=== PATIENT | male | born 1965 | race African-American/Black ===

== ENCOUNTER 2019-12-11 06:22 | Inpatient (IN) | payer MEDICARE, MEDICAID, SELFPAY ==
[2019-12-11] VITALS (49 sets, daily range): BP systolic 117–157; BP diastolic 82–115; PULSE 95–124; RESP 12–28; TEMP 35.9–36.6; O2SAT 91–100; BMI 24.7
--- NOTE | ~2019-12-11 | XR_ITS ---
EXAMINATION: XR chest 1V portable INDICATION: Left-sided chest pain TECHNIQUE: Portable AP chest at 0659 hours COMPARISON: None available FINDINGS: Cardiomegaly is noted. Mild diffuse interstitial and airspace opacities are present. There is no pleural effusion or pneumothorax. Old right-sided rib fractures are noted. There are partially imaged changes of the cervicothoracic spine. IMPRESSION: 1. Mild diffuse interstitial and airspace opacities which could reflect pulmonary edema and/or pneumo cher/or atelectasis. 2. Cardiomegaly. Reviewed, dictated and finalized at location A. DRAWER IMPRESSION: 1. Mild diffuse interstitial and airspace opacities which could reflect pulmona ry edema and/or pneumonia/or atelectasis. 2. Cardiomegaly.
--- NOTE | ~2019-12-11 | XR_ITS ---
EXAMINATION: XR chest 1V portable INDICATION: Pneumonia and congestive heart failure TECHNIQUE: Portable AP chest at 0905 hours COMPARISON: 12/11/2019 FINDINGS: There is stable cardiomegaly. A mild diffuse interstitial pattern persists but has improved . There is no pleural effusion or pneumothorax. Healed right-sided rib fractures are noted. There are partially imaged surgical changes in the cervicothoracic spine. IMPRESSION: 1. Cardiomegaly with improving pulmonary edema. Reviewed, dictated and finalized at location A. CARE MANAGEMENT
--- NOTE | ~2019-12-11 | CT_ITS ---
EXAMINATION: CTA chest PE protocol DATE: 12/11/2019 07:26 INDICATION: Chest pain TECHNIQUE: Computed tomography angiography (CTA) of the chest was performed with 100 mL Omnipaque-350 intravenous contrast timed to evaluate the pulmonary arteries. Coronal maximum intensity projection 3D-reconstructions were created by the technologist. The dose-length product (DLP) was 403.81 mGy-cm. Automated exposure control and iterative reconstruction technique were employed. COMPARISON: None. FINDINGS: The pulmonary arteries are well-opacified. No pulmonary embolism is identified. There is mi ld emphysema. Cardiomegaly is noted. There is smooth interlobular septal thickening in the lower lung zones. Mild dependent atelectasis is noted. There are mildly enlarged bilateral hilar lymph nodes. T race pleural effusions are present. There is no pneumothorax. There are partially imaged surgical chris nges at the cervicothoracic junction. Mild thoracic spondylosis is noted. There are healed right-side d rib fractures. IMPRESSION: 1. No pulmonary embolism. 2. Cardiomegaly with mild pulmonary edema. Reviewed, dictated and finalized at location A. UP AND CHARGER
--- NOTE | 2019-12-11 06:30 | ECG_ITS ---
Measurements Intervals [place] Rate: 108 P: 52 RI: 141 QRS: -54 QRSD: 98 T: 106 QT: 351 QTc: 472 Interpretive Statements SINUS TACHYCARDIA ATRIAL AND VENTRICULAR PREMATURE COMPLEXES POSSIBLE LEFT ATRIAL ENLARGEMENT LEFT AXIS DEVIATION CANNOT RULE OUT SEPTAL INFARCT, AGE INDETERMINATE ST-T WAVE ABNORMALITY IN LATERAL LEADS- CONSIDER ISCHEMIA ABNORMAL ECG Electronically Signed On 12-11-2019 7:56:05 MARKETING BUDGET ANALYST by Marco Dubose D.O.
[2019-12-11 06:44] LABS: Basophils Absolute Auto 0.1 K/mm3 (0.0-0.1); Basophils Percent Auto 0.7 % (0.2-1.2); Eosinophils Absolute Auto 0.3 K/mm3 (0-0.3); Eosinophils Percent Auto 2.1 % (0-4.4); Hematocrit 43.3 % (42.0-52.0); Hemoglobin 14.2 g/dL (14.0-18.0); Immature Granulocyte Percent A 1.6 % (0-0.5); Mean Corpuscular HGB Conc 32.8 g/dl (32-36); Mean Corpuscular Hemoglobin 31.4 pg (26-34); Mean Corpuscular Volume 95.8 fl (80-100); Mean Platelet Volume 11.1 fl (7.4-10.4); Monocytes Absolute Auto 1.3 K/mm3 (0.1-0.6); Monocytes Percent Auto 10.3 % (2.6-8.5); Neutrophils Absolute Auto 8.2 K/mm3 (1.3-6.7); Neutrophils Percent Auto 67.3 % (45.5-73.1); Platelet Count Result 183 k/mm3 (150-375); Red Blood Count 4.52 M/mm3 (4.6-6.20); Red Cell Distribution Width 14.2 % (11.5-14.5); White Blood Count 12.2 K/mm3 (4.5-10.0)
[2019-12-11 06:55] LABS: INR 1.1; Prothrombin Time 14.3 Seconds (11.1-14.7)
[2019-12-11 06:56] LABS: Partial Thromboplastin Time 27.2 SECONDS (22.3-36.8)
[2019-12-11 06:59] LABS: Alanine Aminotransferase 63 U/L (4-50); Albumin Level 4.1 g/dL (3.5-5.1); Alkaline Phosphatase 63 U/L (38-126); Anion Gap 10 mmol/L (8-16); Aspartate Amino Transferase 50 U/L (17-59); Bilirubin,Total 0.8 mg/dL (0.2-1.3); Blood Urea Nitrogen 21 mg/dL (9-20); Calcium 9.2 mg/dL (8.4-10.2); Carbon Dioxide 29 mmol/L (22-30); Chloride 103 mmol/L (98-107); Estimated CRCL calculation 83 ml/min; Estimated Glomerular Filt Rate > 60; Glucose 120 mg/dL (75-110); Potassium 3.5 mmol/L (3.4-5.0); Sodium 142 mmol/L (137-145)
--- NOTE | 2019-12-11 07:09 | ED.CHESTPAIN ---
HPI - Chest Pain General Chief Complaint: Chest Pain Stated Complaint: CP Time Seen by Provider: 12/11/19 07:00 Source: RN notes reviewed History of Present Illness HPI narrative: Patient presents emergency department from home for left-sided chest pain. Patient states pain began last night. States the pain has been constant and does not radiate. The pain is located over the left chest and described sharp and stabbing. Associate with mild shortness of breath. He denies any fevers or chills cough abdominal pain nausea vomiting or any other symptoms denies any previous cardiac history Related Data Allergies Allergy/AdvReac Type Severity Reaction Status Date / Time aspirin Allergy Unknown Verified 05/27/13 11:00 Review of Systems Review of Systems: Narrative: Gen.: Denies fevers or chills ENT: Denies congestion Respiratory: Denies shortness of breath or cough CV: See HPI GI: Denies abdominal pain nausea, emesis or diarrhea Musculoskeletal: Denies back pain or muscle pain Neuro: Denies numbness, tingling, weakness or focal weakness Skin: Denies rash Except as documented, all other systems reviewed and negative [facility] Past Medical History Medical History (Updated 12/11/19 @ 09:42 by Hal Espinoza DO) Sarcoidosis Social History Social History (Updated 12/11/19 @ 07:10 by Hal Espinoza DO) Smoking status: Current every day smoker Alcohol intake: never Exam Narrative: Exam Narrative: APPEARANCE: No acute distress, nontoxic, resting in bed EYES: EOMI HEENT: Normocephalic, atraumatic, OMM RESPIRATORY: No respiratory distress Clear to auscultation bilaterally with no rhonchi wheezing or rales. CARDIOVASCULAR: Regular rate and rhythm without murmurs rubs or gallops. Chest: Tender palpation over the left anterior lateral chest wall and regions of ribs 6 through 8 and overlying swelling or ecchymosis pain increased with movement of the torso ABDOMINAL: Soft, nontender, nondistended, no rebound or guarding MUSCULOSKELETAl: Moves all extremities. No clubbing, cyanosis or edema. NEURO: Awake and alert. Following commands, speech normal, no focal deficits SKIN:: Warm, dry. No rashes lesions or abrasions PSYCHIATRIC: Normal affect/mood, Course Course Emergency Course: Patient states he is allergic to aspirin and gets hives when he takes aspirin Called and discussed with INVESTMENT FUND MANAGER and Raulito for Dr. Warner presentation work-up. Will discuss with Dr. Timmy Warner came to emergency department to evaluate the patient. After evaluation he does plan to take the patient to the Foot [facility]ist at this time. He recommends no further anticoagulation be given at this time. Request patient admitted to hospitalist service Discussed with Dr Nolan presentation work-up. Agrees with admission at this time Discussed with patient and family results of workup and diagnosis. Discussed need for admission. Patient and family understand and agree to current treatment plan Vital Signs Vital signs: Vital Signs Temperature 97.9 F 12/11/19 06:20 Pulse Rate 113 H 12/11/19 06:20 Respiratory Rate 20 12/11/19 06:20 Blood Pressure 131/103 H 12/11/19 06:20 Pulse Oximetry 94 12/11/19 06:20 Temperature 97.9 F 12/11/19 06:20 Pulse Rate 108 H 12/11/19 09:16 Respiratory Rate 20 12/11/19 09:16 Blood Pressure 135/103 H 12/11/19 09:16 Pulse Oximetry 96 12/11/19 09:16 MDM - Chest Pain Lab Data Result diagrams: 12/11/19 06:36 12/11/19 06:36 Labs: Lab Results 12/11/19 12/11/19 12/11/19 Range/Units 06:36 06:36 06:36 WBC 12.2 H (4.5-10.0) K/mm3 RBC 4.52 L (4.6-6.20) M/mm3 Hgb 14.2 (14.0-18.0) g/dL Hct 43.3 (42.0-52.0) % MCV 95.8 (80-100) fl MCH 31.4 (26-34) pg MCHC 32.8 (32-36) g/dl RDW 14.2 (11.5-14.5) % Plt Count 183 (150-375) k/mm3 MPV 11.1 H (7.4-10.4) fl Immature Gran % (Auto) 1.6 H (0-0.5) % Neut % (Auto) 67
[2019-12-11 07:10] LABS: Troponin I 0.146 ng/mL (0.000-0.034)
[2019-12-11 07:29] LABS: NT Pro B Type Natriuretic Pept 7060 PG/ML (5-100)
[2019-12-11] MEDS: MORPHINE SULFATE (*CRX) 2 MG/ML INJ IV PUSH (08:02)
[2019-12-11] MEDS: NITROGLYCERIN OINTMENT 1 INCH DOSE TRANSDERM (08:24)
--- NOTE | 2019-12-11 09:38 | PM.CNCAR ---
Assessment and Plan Additional Plan this is a 54-year-old black male with intermittent episodes of chest pain for 2 or 3 weeks. By his description in the quality of this pain it sounds most commonly like chest wall pain. Having said that he does have some E T-wave abnormalities electrocardiographically and a modestly elevated troponin. We will bring the patient this morning for coronary angiography to define his coronary anatomy. Hopefully he will not have disease requiring PCI since he reports an aspirin allergy. Vipul Warner MD [facility] History of Present Illness History of Present Illness Consult date/time: 12/11/19 09:38 Consult reason: chest pain Reason For Visit: nstemi Narrative: This is a 54-year-old gentleman that I am seeing in the emergency room this morning because of chest pain. He is unknown to me prior to this encounter. This is a man who says he has been having episodes of chest pain for approximately 2-3 weeks. The pain he says is a pressure-like central substernal to sometimes left precordial pain that is sometimes mild sometimes more severe. When he has it he states that respiratory effort makes the pain much worse. It is also worse when he lays down supine and stents to improve when he sits up in the forward position. This morning he had an episode of this pain that was particularly severe he became concerned and had his call an ambulance he was brought to the emergency room for evaluation. In the ambulance on route he received some nitroglycerin which provided some modest improvement in his symptoms. He received some morphine in the emergency department for further treatment of this pain. He has not received aspirin since he reports an aspirin allergy. His electrocardiogram in the emergency room shows sinus tachycardia with left ventricular hypertrophy and secondary repolarization abnormalities. His troponin level was elevated at 0.1. In this setting I am seeing him in consultation in the emergency department. His chest x-ray demonstrates enlargement of the cardiac silhouette and some pulmonary vascular congestion. Oxygenation is normal in the emergency department. His past medical history is remarkable primarily for hypertension and sarcoidosis. Review of Systems Constitutional: Constitutional: Reports no additional constitutional complaints Eyes: Eyes: Reports no additional eye complaints ENT: Reports system reviewed and no additional complaints, except as documented Cardiovascular: Cardiovascular: Reports as per HPI Respiratory: Respiratory: Reports as per HPI Gastrointestinal: Gastrointestinal: Reports no additional gastrointestinal complaints Musculoskeletal: Musculoskeletal: Reports no additional musculoskeletal complaints Integumentary/Breasts: Skin/Breast: Reports system reviewed and no additional complaints, except as docu Neurologic: Reports system reviewed and no additional complaints, except as documented Endocrine: Endocrine: Reports no additional endocrine complaints [facility] Past Medical History Medical History (Updated 12/11/19 @ 09:42 by Hal Espinoza DO) Sarcoidosis Social History Social History (Updated 12/11/19 @ 07:10 by Hal Espinoza DO) Smoking status: Current every day smoker Alcohol intake: never Meds Home Medications and Allergies Allergies Allergy/AdvReac Type Severity Reaction Status Date / Time aspirin Allergy Unknown Verified 05/27/13 11:00 Vital Signs Vital Signs - 24 hr 12/11/19 06:20 12/11/19 06:46 12/11/19 06:52 Temperature 36.6 C Pulse Rate 113 H 107 H Respiratory Rate 20 20 Blood Pressure 131/103 H 138/99 H Pulse Oximetry 94 94 12/11/19 07:00 12/11/19 07:01 12/11/19 07:15 Temperature Pulse Rate 112 H 107 H 108 H Respiratory Rate 14 14 16 Blood Pressure 139/101 H 136/97 H Pulse Oximetry 95 94 94 12/11/19 07:16 12/11/19 07:30 12/11/19 07:41 Temperature Pulse Rate 106 H 113 H 107 H
--- NOTE | 2019-12-11 09:49 | WPDMODSED ---
Moderate Sedation Note-Pt Data Patient Data Diagnosis: chest pain, ECG abnormalities, elevated troponin Present Complaint: this is a 54-year-old patient with a history of hypertension and sarcoidosis presenting with 2-3 weeks of intermittent chest pain primarily with quality that sounds like chest wall pain. He does have T-wave abnormalities and elevated troponin prompting the recommendation to perform an angiogram Procedure to be performed/Plan: left heart catheterization Allergies Allergy/AdvReac Type Severity Reaction Status Date / Time aspirin Allergy Unknown Verified 05/27/13 11:00 Sedation/Anesthesia: No previous sedation/anesthesia problems (including family history). [facility] Past Medical History Medical History (Updated 12/11/19 @ 09:42 by Hal Espinoza DO) Sarcoidosis Social History Social History (Updated 12/11/19 @ 07:10 by Hal Espinoza DO) Smoking status: Current every day smoker Alcohol intake: never Mod Sed Physical Exam Physical Exam Pre Procedural Exam: Normal: Neck, Throat, Airway, Lungs, Heart Size, Heart Rate, Heart Rhythm, Neuro Exam and Extremities and Variation: Appearance ( well-developed well-nourished black male mild distress with chest pain) Hours since solid foods: 12 Hours since liquid intake: 12 Internal Medicine - PN: Obj Da Vital Signs Vital Signs: Vital Signs - 24 hr 12/11/19 06:20 12/11/19 06:46 12/11/19 06:52 Temperature 36.6 C Pulse Rate 113 H 107 H Respiratory Rate 20 20 Blood Pressure 131/103 H 138/99 H Pulse Oximetry 94 94 12/11/19 07:00 12/11/19 07:01 12/11/19 07:15 Temperature Pulse Rate 112 H 107 H 108 H Respiratory Rate 14 14 16 Blood Pressure 139/101 H 136/97 H Pulse Oximetry 95 94 94 12/11/19 07:16 12/11/19 07:30 12/11/19 07:41 Temperature Pulse Rate 106 H 113 H 107 H Respiratory Rate 16 20 15 Blood Pressure 135/97 H Pulse Oximetry 95 96 94 12/11/19 07:45 12/11/19 07:46 12/11/19 08:00 Temperature Pulse Rate 113 H 106 H 111 H Respiratory Rate 12 12 17 Blood Pressure 135/100 H 145/115 H Pulse Oximetry 95 94 98 12/11/19 08:01 12/11/19 08:04 12/11/19 08:15 Temperature Pulse Rate 110 H 110 H 109 H Respiratory Rate 20 12 Blood Pressure 142/101 H Pulse Oximetry 97 91 12/11/19 08:16 12/11/19 08:30 12/11/19 08:31 Temperature Pulse Rate 107 H 109 H 108 H Respiratory Rate 14 20 20 Blood Pressure 139/102 H Pulse Oximetry 93 93 96 12/11/19 08:45 12/11/19 08:46 12/11/19 09:00 Temperature Pulse Rate 117 H 124 H 106 H Respiratory Rate 16 19 20 Blood Pressure 138/104 H 139/104 H Pulse Oximetry 94 95 92 12/11/19 09:01 12/11/19 09:15 12/11/19 09:16 Temperature Pulse Rate 107 H 108 H 108 H Respiratory Rate 20 20 20 Blood Pressure 135/103 H Pulse Oximetry 94 92 96 12/11/19 09:17 12/11/19 09:30 12/11/19 09:31 Temperature Pulse Rate 107 H 106 H 107 H Respiratory Rate 22 H 23 H 17 Blood Pressure 139/103 H Pulse Oximetry 94 92 95 Meds/Results Radiology Results: ITS Impressions Chest X-Ray 12/11/19 06:58 IMPRESSION: 1. Mild diffuse interstitial and airspace opacities which could reflect pulmonary edema and/or pneumonia/or atelectasis. 2. Cardiomegaly. Chest CTA 12/11/19 07:33 IMPRESSION: 1. No pulmonary embolism. 2. Cardiomegaly with mild pulmonary edema. Labs CBC & Chem 7: 12/11/19 06:36 12/11/19 06:36 Labs: Laboratory Results - last 24 hr 12/11/19 12/11/19 12/11/19 06:36 06:36 06:36 WBC 12.2 H RBC 4.52 L Hgb 14.2 Hct 43.3 MCV 95.8 MCH 31.4 MCHC 32.8 RDW 14.2 Plt Count 183 MPV 11.1 H Immature Gran % (Auto) 1.6 H Neut % (Auto) 67.3 Lymph % (Auto) 18.0 L [place] % (Auto) 10.3 H Eos % (Auto) 2.1 Baso % (Auto) 0.7 Lymph # (Auto) 2.20 [place] # (Auto) 1.3 H Eos # (Auto) 0.3 Baso # (Auto) 0.1 Abs Immat Gran (auto) 0.20 H Absolute Neuts (au
[2019-12-11 10:03] LABS: Troponin I 0.153 ng/mL (0.000-0.034)
--- NOTE | 2019-12-11 10:42 | WPDCARDPROC ---
Cardiac Cath Procedure Note Date of procedure:: 12/11/19 Performing physician:: Vipul Warner MD Indication:: chest pain, ECG abnormality, troponin elevation Brief clinical history:: this is a 54-year-old patient without previous history of cardiac disease he does have hypertension and sarcoidosis. He presents with a 2 to three-week history of intermittent chest pain which is worse in the supine position and worse with respiratory effort. His electrocardiogram demonstrates nonspecific T-wave abnormalities and evidence of left ventricular hypertrophy. Chest x-ray shows enlargement of the cardiac silhouette and pulmonary vascular congestion. Procedure Procedure performed:: Left heart catheterization with coronary angiography and left ventriculography Sedation/Medication given:: fentanyl 50 mg Versed 2 mg case start time 10:17 a.m. case end time 10:34 a.m. sedation provided by Josefa Tim RN, trained observer Access site:: right femoral artery Estimated blood loss:: 10-15 cc Procedure note:: patient was brought to the cardiac catheterization lab in the postabsorptive state the right femoral triangle was prepared in the usual fashion anesthesia was provided with 1% lidocaine infiltrated locally. Using the modified Seldinger technique a 5 Hungarian sheath was placed into the femoral artery. I then performed left heart catheterization. A 5 Hungarian angled pigtail catheter was utilized to document left-sided hemodynamics, pullback pressures across the aortic valve and inject the left ventriculogram in the [place] projection. Following this I used a 5 Hungarian FL4 catheter in to inject the left coronary artery. The right coronary artery was anomalous and injected with a AL1 catheter. Following this the cineangiograms were reviewed and the case was terminated. The patient tolerated procedure well he was taken to the holding area for manual sheath removal in was no evidence of a groin hematoma upon leaving the cardiac catheterization lab. Findings:: Hemodynamics: Central aortic pressure was 132/90 left ventricle 132/12 end-diastolic pressure of 40. No pullback gradient across the aortic valve. Left ventricle: The LV is markedly dilated and profoundly hypodynamic in a global fashion. Ejection fraction visually estimated to be 10%. The left main coronary artery is nicely patent the left anterior descending is a large caliber vessel extending down to around the apex the LAD and its branches are smooth and angiographically unremarkable the circumflex is a medium caliber vessel giving rise to the marginal branches the circumflex is smooth and angiographically unremarkable right coronary artery is anomalous injected with the AL1 catheter. Taking off from the left coronary cusp. It is otherwise smooth and angiographically non disease. Conclusion:: 1. 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 left ventricular dilatation with profound systolic failure and markedly elevated LV filling pressure. Patient clearly has a severe nonischemic cardiomyopathy Vipul Warner MD [facility]
--- NOTE | 2019-12-11 13:18 | ADMGEN ---
This patient, James Loera, was admitted to IMU Room 212-01. Patient/family oriented to hospital policies and general routines including ID bracelet, bed and alarms, visiting hours, pain management, procedures, bathroom and other care routines, personal items, smoking policy, room service/diet, and visiting hours. Information on how to activate the Rapid Response Team has been discussed. Patient/Family are encouraged to report perceived risks to care and to ask questions if they do not understand what they are told or what they should do.
[2019-12-11 13:41] LABS: Troponin I 0.134 ng/mL (0.000-0.034)
[2019-12-11] MEDS: ACETAMINOPHEN 500 MG TABLET 1000 MG PO ×2 (13:55→20:09)
[2019-12-11] MEDS: SODIUM CHLORIDE 0.9% IV 1,000 ML 125 ML IV CONT (13:55)
[2019-12-11] MEDS: FUROSEMIDE 40 MG TABLET PO (13:55)
[2019-12-11] MEDS: POTASSIUM CHLORIDE 20 MEQ TABLET 40 MEQ PO (16:30)
[2019-12-11] MEDS: LIDOCAINE 5% PATCH 1 PATCH TRANSDERM (17:43)
[2019-12-11] MEDS: GABAPENTIN 400 MG CAPSULE 1200 MG PO (17:43)
[2019-12-11] MEDS: carvediloL 3.125 MG TABLET PO (20:08)
[2019-12-11] MEDS: CYCLOBENZAPRINE HCL 10 MG TABLET PO (20:09)
[2019-12-11] MEDS: SACUBITRIL/VALSARTAN 24-26 MG TABLET 1 TAB PO (20:09)
--- NOTE | 2019-12-11 21:30 | PM.IMHP ---
H&P: HPI History of Present Illness Date/Time: 12/11/19 21:30 Chief complaint: Chest pain. Narrative: James Loera is a pleasant 54-year-old male smoker with COPD, GERD, hypertension, and sarcoidosis on long-term prednisone who presented to the emergency department earlier this morning from work for evaluation of chest pain. He reports intermittent chest discomfort for the last 2 to 3 weeks with both midsternal chest pressure and occasional left precordial pain that is sharp and shooting in nature. He sees no real pattern as to when these pains occur, but does note that deep inspiration and palpation aggravates the pain. It seems to be worse when supine and improved somewhat when sitting forward. Last evening the pain became constant and was present when he awoke this morning. Not long after getting to work the chest pain worsened and he was brought into the emergency room for evaluation. Nitroglycerin given in the ambulance provided him with perhaps a bit of improvement in his symptoms. EKG on arrival showed a sinus tachycardia with LVH and secondary repolarization abnormalities with a troponin of 0.1. He is now status post cardiac catheterization per Dr. Warner, which showed no angiographic evidence of coronary artery disease but did demonstrate finding of a severe dilated nonischemic cardiomyopathy. He has since been started on several medications including Entresto, spironolactone, and carvedilol and he was also given a dose of furosemide for pulmonary vascular congestion noted on chest x-ray. At the time of my evaluation he still has reducible left precordial chest pain, somewhat improved after he was given cyclobenzaprine and Lidoderm patch. He appears quite anxious and he reveals to me that his was recently diagnosed with pancreatic cancer and this has really caused him a lot of anxiety, to the point where he was tearful. He has not been sleeping well because of that and seems to be having anxiety attacks. He has no known cardiac involvement with regards to his sarcoidosis and has not had exertional chest pain, shortness of breath, orthopnea, PND, edema, nausea, vomiting, or sweats. He does not drink alcohol in significant quantities, concerns for hepatitis and HIV, and illicit substance use. Review of Systems Review of Systems: Narrative: Twelve systems were reviewed with pertinent positives and negatives as per HPI. No fever, chills, or sweats. No recent cold or flu symptoms. He denies exposure to those positive for COVID-19. Occasional headache. No vertigo, focal weakness, or paresthesias. No nausea, vomiting, or diarrhea. Except as documented, all other systems were reviewed and are negative. [facility] Past Medical History Medical History (Updated 12/12/19 @ 01:11 by Jacqueline Mccurdy PA-C) Chronic obstructive pulmonary disease Gastroesophageal reflux disease Glaucoma Hypertension Nonischemic cardiomyopathy Cardiac catheterization on 12/11/2019 showed left ventricular dilatation with profound systolic failure and markedly elevated LV filling pressures with an estimated ejection fraction of 10% Osteoarthritis Sarcoidosis Tobacco dependence Surgical History Surgical History (Updated 12/12/19 @ 01:07 by Jacqueline Mccurdy PA-C) History of cervical spinal surgery (~2010) History of left knee replacement History of surgical removal of ganglion cyst (~2017) Right volar wrist. Family History Family History Father Acute myocardial infarction Social History Social History (Updated 12/12/19 @ 01:07 by Jacqueline Mccurdy PA-C) Social History: Surrogate decision maker: Jeanette Loera, . Code status: Full code. Smoking packs per day: 0.5 Smoking cigarettes per day: 10.0 Years smoked: 15 Smoking pack-years: 7.50 Smoking status: Current every day smoker Tobacco type: cigarettes Alcohol intake: current Drinks per week: 7 Substance use:
[2019-12-11] MEDS: TEMAZEPAM (*CRX) 7.5 MG CAPSULE PO (23:25)
[2019-12-12] VITALS (18 sets, daily range): BP systolic 92–130; BP diastolic 68–99; PULSE 70–113; RESP 18–22; TEMP 35.7–36.6; O2SAT 92–100
[2019-12-12] MEDS: ACETAMINOPHEN 500 MG TABLET 1000 MG PO ×2 (04:24→11:24)
[2019-12-12] MEDS: KETOROLAC 30 MG/ML VIAL (*BKC) IV PUSH (05:08)
[2019-12-12 05:16] LABS: Anion Gap 9 mmol/L (8-16); Blood Urea Nitrogen 18 mg/dL (9-20); Carbon Dioxide 27 mmol/L (22-30); Chloride 101 mmol/L (98-107); Estimated CRCL calculation 94 ml/min; Estimated Glomerular Filt Rate > 60; Glucose 104 mg/dL (75-110); Magnesium 1.8 mg/dL (1.6-2.3); Potassium 3.8 mmol/L (3.4-5.0); Sodium 137 mmol/L (137-145)
[2019-12-12] MEDS: CYCLOBENZAPRINE HCL 10 MG TABLET PO ×2 (08:48→20:41)
[2019-12-12] MEDS: SPIRONOLACTONE 25 MG TABLET PO (08:48)
[2019-12-12] MEDS: carvediloL 3.125 MG TABLET PO ×2 (08:48→20:41)
[2019-12-12] MEDS: predniSONE 20 MG TABLET PO (08:48)
[2019-12-12] MEDS: SACUBITRIL/VALSARTAN 24-26 MG TABLET 1 TAB PO ×2 (08:48→20:42)
[2019-12-12] MEDS: GABAPENTIN 400 MG CAPSULE 1200 MG PO ×3 (08:48→17:20)
[2019-12-12] MEDS: FUROSEMIDE 40 MG TABLET PO (12:56)
--- NOTE | 2019-12-12 16:48 | PM.IMPN ---
Progress Note: A&P Assessment and Plan (1) Nonischemic cardiomyopathy: Code(s): I42.8 - Other cardiomyopathies Status: Acute Assessment and Plan: Ef around 10%, cardiology will dw him about the possibility of a life vest. On Entresto , carvedilol and Aldactone. (2) Chest pain: Code(s): R07.9 - Chest pain, unspecified Status: Acute Assessment and Plan: Likely musculoskeletal, continue supportive treatment. No PE on ct chest. (3) Sarcoidosis: Code(s): D86.9 - Sarcoidosis, unspecified Status: Acute Assessment and Plan: On prednisone. (4) Leukocytosis: Code(s): D72.829 - Elevated white blood cell count, unspecified Status: Acute Assessment and Plan: Likely related to prednisone. Subjective Date/time seen: Still complaining of chest pain, no SOB at rest only with physical activity. 12/12/19 16:48 Review of Systems Review of Systems: All systems reviewed & are unremarkable except as noted in HPI and below Exam Const: General: cooperative and comfortable Neck: Neck: supple and no JVD Resp: Effort & Inspection: normal respiratory effort and able to speak in complete sentences Auscultation: rales Other: Mild rales at the bases, no wheezing. Cardio: Rate: regular rate Rhythm: regular rhythm Heart sounds: S1 normal heart sound present and S2 normal heart sound present GI: Inspection: normal to inspection GI Palp: Yes Soft to palpation Other: No guarding, no tenderness. Skin: General skin exam: no rashes or lesions noted Neuro: General: patient oriented x3 and no focal motor deficits Extrem: General: no clubbing, cyanosis or edema Objective Data Vital Signs Vital Signs: Vital Signs - 24 hr 12/11/19 17:00 12/11/19 18:35 12/11/19 19:20 Temperature 96.8 F L 97.5 F L Pulse Rate 110 H 114 H 110 H Respiratory Rate 24 H 22 H Blood Pressure 143/104 H 130/87 Pulse Oximetry 96 96 12/11/19 20:00 12/11/19 20:08 12/11/19 20:09 Temperature 97.4 F L Pulse Rate 117 H 109 H 108 H Respiratory Rate 22 H Blood Pressure 157/104 H Pulse Oximetry 96 12/11/19 22:00 12/11/19 23:25 12/12/19 00:00 Temperature 97.5 F L Pulse Rate 95 97 101 H Respiratory Rate 16 Blood Pressure 122/82 Pulse Oximetry 94 12/12/19 02:00 12/12/19 04:00 12/12/19 06:00 Temperature 96.2 F L Pulse Rate 96 113 H 99 Respiratory Rate 18 Blood Pressure 115/90 Pulse Oximetry 99 12/12/19 08:00 12/12/19 08:48 12/12/19 10:00 Temperature 97.8 F Pulse Rate 96 103 H 110 H Respiratory Rate 22 H Blood Pressure 130/99 H Pulse Oximetry 98 12/12/19 11:56 12/12/19 12:00 12/12/19 14:00 Temperature 96.5 F L Pulse Rate 105 H 100 99 Respiratory Rate 20 Blood Pressure 105/75 Pulse Oximetry 100 12/12/19 16:00 12/12/19 16:29 Temperature 96.9 F L Pulse Rate 100 98 Respiratory Rate 22 H Blood Pressure 104/69 Pulse Oximetry 100 Intake/Output Intake/Output: Intake & Output 12/09/19 12/10/19 12/11/19 12/12/19 23:59 23:59 23:59 23:59 Intake Total 470.2 1130 Output Total 2605 360 Balance -2134.8 770 Meds/Results Medications: Active Medications Generic Name Dose Route Start Last Admin Trade Name Freq PRN Reason Stop Dose Admin Acetaminophen 1,000 mg 12/11/19 13:39 12/12/19 11:24 Acetaminophen 500 Mg Tablet PO 1,000 mg Q6H PRN Administration Mild Pain (1-3) or Fever Carvedilol 3.125 mg 12/11/19 21:00 12/12/19 08:48 Carvedilol 3.125 Mg Tablet PO 3.125 mg Q12HR MARYURI Administration Cyclobenzaprine HCl 10 mg 12/11/19 21:00 12/12/19 08:48 Cyclobenzaprine Hcl 10 Mg Tablet PO 10 mg Q12HR MARYURI Administration Gabapentin 1,200 mg 12/11/19 17:00 12/12/19 12:56 Gabapentin 400 Mg Capsule PO 1,200 mg TID MARYURI Administration Lidocaine 1 patch 12/11/19 18:00 12/11/19 17:43 Lidocaine 5% Patch TRANSDERM 1 patch Q24H MARYURI
--- NOTE | 2019-12-12 16:59 | PM.PNCARD ---
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 Left ventricular dilatation with profound systolic failure and markedly elevated left ventricular filling pressure. Clearly has a severe nonischemic cardiomyopathy with an ejection fraction estimated at 10%. Continue carvedilol, Entresto and spironolactone. He is diuresing well with the 1 dose furosemide 40 mg p.o. given this morning. Diuresed well yesterday as well. Monitor renal function and electrolytes closely with diuresing. Will check an echo in the morning. Will also do an apnea link this evening to rule out sleep apnea. As he is trying to digest all the information with a new diagnosis of nonischemic cardiomyopathy the possibility of sudden cardiac was NOT discussed at this time. Further recommendations to follow the results of diagnostic testing. (2) Hypertension: Code(s): I10 - Essential (primary) hypertension Status: Acute Assessment and Plan: Blood pressure better controlled. Additional Plan Other musculoskeletal discomfort per hospitalist team Plan discussed with Dr. Jerez [id number] 12/12/2019 Subjective Date/time seen: 12/12/19 16:59 Interval history: Follow-up for: Nonischemic cardiomyopathy, chest pain, hypertension Date of service: 12/12/2019 Subjective: Chest discomfort/pressure is improved. Still has some tenderness at the left axilla ribs. Shortness of breath with exertional activity improved. No lightheadedness unless he gets up too quickly. Continues to have some neck pain. Review of Systems Constitutional: Constitutional: Reports fatigue Eyes: Eyes: Reports no additional eye complaints, Denies blind spots and Denies blurry vision ENT: Reports Normal hearing present, Denies epistaxis and Reports neck pain Cardiovascular: Cardiovascular: Reports chest pain (Per HPI), Denies pedal edema, Reports dyspnea on exertion, Reports orthopnea and Reports paroxysmal nocturnal dyspnea Respiratory: Respiratory: Reports dyspnea on exertion Comments: Awakens himself feeling the need for oxygen. Gastrointestinal: Gastrointestinal: Reports no additional gastrointestinal complaints, Denies abdominal pain, Denies bloating, Denies nausea and Denies vomiting Genitourinary: Genitourinary: Denies hematuria Musculoskeletal: Musculoskeletal: Reports neck pain Integumentary/Breasts: Skin/Breast: Denies erythema Neurologic: Reports Normal hearing present Psychiatric: Psychiatric: Reports anxiety (Worrying that his heart will stop.) Endocrine: Endocrine: Reports fatigue Hematologic/Lymphatic: Hematologic/Lymphatic: Denies easy bleeding and Denies easy bruising Allergic/Immunologic: Allergic/Immunologic: Denies lip swelling and Denies throat swelling Exam Const: General: in distress and anxious Other: Up in chair. at bedside. Mildly distressed. Slightly uncomfortable. HENMT: Head: normocephalic and atraumatic Eyes: Sclera: sclerae normal Pupils: Equal, round and reactive pupils present Neck: Neck: normal visual inspection Other: Chest: Chest palpation & inspection: tenderness (To palpation ribs left axillary line) Resp: Effort & Inspection: normal respiratory effort and able to speak in complete sentences Auscultation: clear to auscultation bilaterally Cardio: Rate: regular rate Rhythm: regular rhythm Peripheral pulses: Peripheral pulses 2+ throughout Other: no murmur no gallop no rub GI: GI Palp: Yes Soft to palpation Auscultation: normal bowel sounds Skin: Other: Multiple tattoos Neuro: Cranial nerves: Yes Equal, round and reactive pupils present Cognition (Neuro): normal cognition Extrem: General:
[2019-12-12] MEDS: TEMAZEPAM (*CRX) 7.5 MG CAPSULE PO (20:42)
[2019-12-13] VITALS (16 sets, daily range): BP systolic 103–111; BP diastolic 65–90; PULSE 86–116; RESP 18–20; TEMP 36.3–36.7; O2SAT 97–100
[2019-12-13 05:40] LABS: Anion Gap 6 mmol/L (8-16); Blood Urea Nitrogen 22 mg/dL (9-20); Carbon Dioxide 30 mmol/L (22-30); Chloride 100 mmol/L (98-107); Estimated CRCL calculation 94 ml/min; Estimated Glomerular Filt Rate > 60; Glucose 107 mg/dL (75-110); Magnesium 1.9 mg/dL (1.6-2.3); Potassium 4.1 mmol/L (3.4-5.0); Sodium 136 mmol/L (137-145)
--- NOTE | 2019-12-13 09:00 | ECHO_ITS ---
Patient Info Name: James Loera Age: 54 years : 1965 Gender: Male Ht: 73 in Wt: 193 lbs BSA: 2.13 m2 HR: 110 bpm BP: 109 / 90 mmHg Heart Rhythm: Tachycardia Technical Quality: Good Exam Date: 12/13/2019 9:35 AM Exam Location: [facility] Patient Status: Inpatient Admit Date: 12/12/2019 Staff Ordering Physician: Tri Cabezas APRN [employer] Architect: Antelmo Denney RDCS Attending Provider: Josy Nolan MD Referring Physician: Raulito KRAMER; Exam Type: CA echo dop color flow w con Study Info Indications I42.9 - Cardiomyopathy, unspecified Complete two-dimensional, color flow and Doppler transthoracic echocardiogram is performed with contrast to opacify the left ventricle and to improve the deliniation of the left ventricle endocardial borders. Strain analysis performed. Contrast/Agitated Saline Contrast/Ag. Saline: Definity Amount: 3.00 ml Administered By: Lorraine Tim RN Existing IV Access: Yes History/Risk Factors NICM; chest pain, SOB, clean cath, HTN, NSTEMI. Summary 1. Left ventricular chamber dimension is severely enlarged. 2. Left ventricular systolic function is severely reduced, estimated at <15%. 3. There is no increased left ventricular wall thickness. 4. The left ventricular diastolic function is grade I diastolic dysfunction. 5. There is no thrombus visualized in the left ventricle. 6. Global longitudinal strain is abnormal at -5 %. 7. Global hypokinesis of the left ventricle. 8. Right ventricular systolic function is reduced. 9. Left atrial chamber dimension is moderately enlarged. 10. There is moderate mitral valve regurgitation. 11. There is mild tricuspid valve regurgitation. 12. Complete two-dimensional, color flow and Doppler transthoracic echocardiogram is performed with contrast to opacify the left ventricle and to improve the deliniation of the left ventricle endocardial borders. 13. Strain analysis performed. Left Ventricle Left ventricular chamber dimension is severely enlarged. Left ventricular systolic function is severely reduced, estimated at <15%. There is no increased left ventricular wall thickness. The left ventricular diastolic function is grade I diastolic dysfunction. There is no thrombus visualized in the left ventricle. Global longitudinal strain is abnormal at -5 %. Global hypokinesis of the left ventricle. Right Ventricle Right ventricular chamber dimension is normal. Right ventricular systolic function is reduced. Left Atria Left atrial chamber dimension is moderately enlarged. Right Atria Right atrial chamber dimension is normal. Atrial Septum Intact interatrial septum visualized by color flow imaging. Aortic Valve The aortic valve is trileaflet. There is mild aortic valve sclerosis. There is no aortic valve stenosis. There is trace aortic valve regurgitation. Pulmonic Valve The pulmonic valve is normal. There is no pulmonic valve stenosis. There is trace pulmonic regurgitation. Mitral Valve The mitral valve has normal leaflets. There is no mitral valve stenosis. There is moderate mitral valve regurgitation. Tricuspid Valve The tricuspid valve leaflets are normal. There is no significant tricuspid valve stenosis. There is mild tricuspid valve regurgitation. Pericardium/Pleural The pericardium appears normal. There is no pericardial effusion. Inferior Vena Cava Dilated inferior vena
[2019-12-13] MEDS: SPIRONOLACTONE 25 MG TABLET PO (09:09)
[2019-12-13] MEDS: SACUBITRIL/VALSARTAN 24-26 MG TABLET 1 TAB PO ×2 (09:09→22:21)
[2019-12-13] MEDS: carvediloL 3.125 MG TABLET PO (09:09)
[2019-12-13] MEDS: GABAPENTIN 400 MG CAPSULE 1200 MG PO ×3 (09:09→16:49)
[2019-12-13] MEDS: CYCLOBENZAPRINE HCL 10 MG TABLET PO ×2 (09:09→22:21)
[2019-12-13] MEDS: predniSONE 20 MG TABLET PO (09:09)
[2019-12-13] MEDS: PERFLUTREN LIPID MICROSPHERES 1.5 ML VIAL DILUTED TO 10 ML TOTAL VOLUME IV PUSH (10:00)
[2019-12-13] MEDS: FUROSEMIDE 40 MG TABLET PO (12:37)
[2019-12-13] MEDS: POTASSIUM CHLORIDE 20 MEQ TABLET 40 MEQ PO (12:37)
[2019-12-13] MEDS: ACETAMINOPHEN 500 MG TABLET 1000 MG PO (12:42)
--- NOTE | 2019-12-13 13:14 | PM.PNCARD ---
Progress Note: A&P Additional Plan 54-year-old man unfortunately with severe profound nonischemic dilated cardiomyopathy. I will advance his carvedilol dosage to 6.25 mg today. Continue Entresto and spironolactone. Consult life vest. I would consider discharge to be appropriate possibly tomorrow if he is doing well. Vipul Warner MD [facility] Subjective Date/time seen: Date of service: 12/13/19 13:14 Interval history: Follow-up visit in this unfortunate 54-year-old man with new diagnosis of severe dilated nonischemic cardiomyopathy Patient is feeling better since admission low much less short of breath although still has positional dyspnea when completely flat supine. Chest pain is much better Long discussion with the patient today about the details of his diagnosis as well as the risk of lethal arrhythmias in the need to recommend Life Vest to protect him upon discharge. In addition to this because of the severity of his cardiomyopathy it would be of his benefit to be seen in consultation for introduction to the Heart failure group [facility]. We will arrange for this at the time of discharge as well. Exam Const: General: comfortable and no acute distress Eyes: Sclera: sclerae normal Pupils: Equal, round and reactive pupils present Chest: Chest palpation & inspection: normal inspection of the chest Resp: Effort & Inspection: normal respiratory effort Other: Scant pulmonary rales are noted Cardio: Jugular venous distension: no JVD Other: PMI is enlarged and laterally displaced. Summation gallop audible no murmur GI: GI Palp: Yes Soft to palpation Auscultation: normal bowel sounds Extrem: Other: No peripheral edema adequate arterial perfusion noted Objective Data Vital Signs Vital Signs: Vital Signs - 24 hr 12/12/19 14:00 12/12/19 16:00 12/12/19 16:29 Temperature 36.1 C L Pulse Rate 99 100 98 Respiratory Rate 22 H Blood Pressure 104/69 Pulse Oximetry 100 12/12/19 18:00 12/12/19 19:49 12/12/19 20:00 Temperature 36.2 C L Pulse Rate 103 H 105 H 103 H Respiratory Rate 18 Blood Pressure 124/79 Pulse Oximetry 96 12/12/19 20:41 12/12/19 22:00 12/12/19 23:31 Temperature 36.4 C L Pulse Rate 105 H 96 99 Respiratory Rate 18 Blood Pressure 92/68 L Pulse Oximetry 92 99 12/13/19 00:00 12/13/19 02:00 12/13/19 03:55 Temperature 36.7 C Pulse Rate 101 H 95 107 H Respiratory Rate 20 Blood Pressure 109/79 Pulse Oximetry 98 12/13/19 04:00 12/13/19 06:00 12/13/19 07:12 Temperature 36.3 C L Pulse Rate 103 H 104 H 86 Respiratory Rate 18 Blood Pressure 109/90 Pulse Oximetry 97 12/13/19 08:00 12/13/19 09:09 12/13/19 10:00 Temperature Pulse Rate 104 H 106 H 108 H Respiratory Rate Blood Pressure Pulse Oximetry 12/13/19 12:00 Temperature Pulse Rate 105 H Respiratory Rate Blood Pressure Pulse Oximetry Intake/Output Intake/Output: Intake & Output 12/10/19 12/11/19 12/12/19 12/13/19 23:59 23:59 23:59 23:59 Intake Total 470.2 2110 720 Output Total 2605 600 500 Balance -2134.8 1510 220 Meds/Results Medications: Active Medications Generic Name Dose Route Start Last Admin Trade Name Freq PRN Reason Stop Dose Admin Acetaminophen 1,000 mg 12/11/19 13:39 12/13/19 12:42 Acetaminophen 500 Mg Tablet PO 1,000 mg Q6H PRN Administration Mild Pain (1-3) or Fever Carvedilol 6.25 mg 12/13/19 21:00 Carvedilol 6.25 Mg Tablet PO Q12HR MARYURI Cyclobenzaprine HCl 10 mg 12/11/19 21:00 12/13/19 09:09 Cyclobenzaprine Hcl 10 Mg Tablet PO 10 mg Q12HR MARYURI Administration Gabapentin 1,200 mg 12/11/19 17:00 12/13/19 12:37 Gabapentin 400 Mg Capsule PO 1,200 mg TID MARYURI Administration Lidocaine 1 patch 12/12/19 17:25 Lidocaine 5% Patch TRANSDERM Q24H PRN Pain Prednisone 20 mg 12/12/19 09:00 12/13/19 09:09 Prednisone 20 Mg Tablet PO 20 mg DAILY MARYURI Adminis
--- NOTE | 2019-12-13 15:03 | PM.IMPN ---
Progress Note: A&P Assessment and Plan (1) Nonischemic cardiomyopathy: Code(s): I42.8 - Other cardiomyopathies Status: Acute Assessment and Plan: Ef around 10%, cardiology discussing with him about the possibility of a life vest. On Entresto , carvedilol and Aldactone. CXR showed improved pulmonary edema, received another dose of Lasix. (2) Chest pain: Code(s): R07.9 - Chest pain, unspecified Status: Acute Assessment and Plan: Likely musculoskeletal, continue supportive treatment. No PE on ct chest. (3) Sarcoidosis: Code(s): D86.9 - Sarcoidosis, unspecified Status: Acute Assessment and Plan: On prednisone. (4) Leukocytosis: Code(s): D72.829 - Elevated white blood cell count, unspecified Status: Acute Assessment and Plan: Likely related to prednisone. Subjective Date/time seen: No new complains, he feels a little better. Still having some dyspnea with physical activity. 12/13/19 15:03 Exam Const: General: cooperative and comfortable Orientation/consciousness: patient oriented x3 Neck: Neck: supple and no JVD Resp: Effort & Inspection: normal respiratory effort and able to speak in complete sentences Auscultation: rales Other: Mild rales at the bases, no wheezing. Cardio: Rate: regular rate Rhythm: regular rhythm Heart sounds: S1 normal heart sound present and S2 normal heart sound present GI: Inspection: normal to inspection Other: No guarding, no tenderness. Skin: General skin exam: no rashes or lesions noted Neuro: General: patient oriented x3 and no focal motor deficits Extrem: General: no clubbing, cyanosis or edema Objective Data Vital Signs Vital Signs: Vital Signs - 24 hr 12/12/19 16:00 12/12/19 16:29 12/12/19 18:00 Temperature 96.9 F L Pulse Rate 100 98 103 H Respiratory Rate 22 H Blood Pressure 104/69 Pulse Oximetry 100 12/12/19 19:49 12/12/19 20:00 12/12/19 20:41 Temperature 97.2 F L Pulse Rate 105 H 103 H 105 H Respiratory Rate 18 Blood Pressure 124/79 Pulse Oximetry 96 12/12/19 22:00 12/12/19 23:31 12/13/19 00:00 Temperature 97.5 F L Pulse Rate 96 99 101 H Respiratory Rate 18 Blood Pressure 92/68 L Pulse Oximetry 92 99 12/13/19 02:00 12/13/19 03:55 12/13/19 04:00 Temperature 98.1 F Pulse Rate 95 107 H 103 H Respiratory Rate 20 Blood Pressure 109/79 Pulse Oximetry 98 12/13/19 06:00 12/13/19 07:12 12/13/19 08:00 Temperature 97.4 F L Pulse Rate 104 H 86 104 H Respiratory Rate 18 Blood Pressure 109/90 Pulse Oximetry 97 12/13/19 09:09 12/13/19 10:00 12/13/19 12:00 Temperature 98.1 F Pulse Rate 106 H 108 H 104 H Respiratory Rate 20 Blood Pressure 104/83 Pulse Oximetry 97 Intake/Output Intake/Output: Intake & Output 12/10/19 12/11/19 12/12/19 12/13/19 23:59 23:59 23:59 23:59 Intake Total 470.2 2110 720 Output Total 2605 600 1425 Balance -2134.8 1510 -705 Meds/Results Medications: Active Medications Generic Name Dose Route Start Last Admin Trade Name Freq PRN Reason Stop Dose Admin Acetaminophen 1,000 mg 12/11/19 13:39 12/13/19 12:42 Acetaminophen 500 Mg Tablet PO 1,000 mg Q6H PRN Administration Mild Pain (1-3) or Fever Carvedilol 6.25 mg 12/13/19 21:00 Carvedilol 6.25 Mg Tablet PO Q12HR MARYURI Cyclobenzaprine HCl 10 mg 12/11/19 21:00 12/13/19 09:09 Cyclobenzaprine Hcl 10 Mg Tablet PO 10 mg Q12HR MARYURI Administration Gabapentin 1,200 mg 12/11/19 17:00 12/13/19 12:37 Gabapentin 400 Mg Capsule PO 1,200 mg TID MARYURI Administration Lidocaine 1 patch 12/12/19 17:25 Lidocaine 5% Patch TRANSDERM Q24H PRN Pain Prednisone 20 mg 12/12/19 09:00 12/13/19 09:09 Prednisone 20 Mg Tablet PO 20 mg DAILY MARYURI Administration Sacubitril/Valsartan 1 tab 12/11/19 21:00 12/13/19 09:09 Sacubitril/Valsartan 24-26 Mg Table
[2019-12-13] MEDS: carvediloL 6.25 MG TABLET PO (22:22)
[2019-12-14] VITALS (11 sets, daily range): BP systolic 96–115; BP diastolic 64–80; PULSE 96–105; RESP 16–18; TEMP 36–36.6; O2SAT 95–100
[2019-12-14 06:39] LABS: Anion Gap 6 mmol/L (8-16); Blood Urea Nitrogen 31 mg/dL (9-20); Calcium 8.7 mg/dL (8.4-10.2); Carbon Dioxide 30 mmol/L (22-30); Chloride 104 mmol/L (98-107); Estimated CRCL calculation 85 ml/min; Estimated Glomerular Filt Rate > 60; Glucose 114 mg/dL (75-110); Potassium 4.5 mmol/L (3.4-5.0); Sodium 140 mmol/L (137-145)
[2019-12-14] MEDS: SPIRONOLACTONE 25 MG TABLET PO (09:55)
[2019-12-14] MEDS: SACUBITRIL/VALSARTAN 24-26 MG TABLET 1 TAB PO (09:56)
[2019-12-14] MEDS: GABAPENTIN 400 MG CAPSULE 1200 MG PO ×3 (09:56→16:26)
[2019-12-14] MEDS: predniSONE 20 MG TABLET PO (09:56)
[2019-12-14] MEDS: CYCLOBENZAPRINE HCL 10 MG TABLET PO (09:56)
[2019-12-14] MEDS: carvediloL 6.25 MG TABLET PO (09:56)
--- NOTE | 2019-12-14 10:54 | PM.PNCARD ---
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 Left ventricular dilatation with profound systolic failure and markedly elevated left ventricular filling pressure. Clearly has a severe nonischemic cardiomyopathy with an ejection fraction estimated at 10%. Continue carvedilol, Entresto and spironolactone. -Lasix 20 mg p.o. x1 now anticipate daily thereafter depending upon urine output prior to discharge. Patient stable for discharge home early this afternoon. Follow-up as scheduled. Very lengthy discussion held with the patient reviewing implications of his low EF, sudden cardiac , importance of compliance with LifeVest, medications, daily weight, CHF management and observation, low-sodium intake and communication with our office. We discussed additional workup as an outpatient depending on patient's response to therapy and clinical circumstances as the precise etiology of his cardiomyopathy is not known at present. -compliance with LifeVest to reduce sudden cardiac . Patient verbalizes understanding. (2) Hypertension: Code(s): I10 - Essential (primary) hypertension Status: Acute Assessment and Plan: Blood pressure better controlled. (3) Sarcoidosis: Code(s): D86.9 - Sarcoidosis, unspecified Status: Acute Assessment and Plan: Potential contribution. Full details in this regard unknown at this time. Discussed potential outpatient cardiac MRI but will defer to Dr. Warner in this regard. (4) CHF (congestive heart failure): Code(s): I50.9 - Heart failure, unspecified Status: Acute Assessment and Plan: As above. Reasonably compensated but very high LVEDP 40 mm Hg on left heart catheterization. As a result he will require ongoing diuresis at least in the near term. Subjective Date/time seen: Date of service: 12/14/19 10:54 Interval history: Follow-up visit new diagnosis of severe dilated nonischemic cardiomyopathy Patient is feeling better but still notes some fatigue and exertional dyspnea with ambulation mild orthopnea. Patient states he feels well enough to be discharged. No palpitations, chest pain or dizziness. Still notes mild chest discomfort worse with deep breathing. No edema. He states he has not had his Symbicort since admission. Review of Systems Constitutional: Constitutional: Reports fatigue Eyes: Eyes: Reports no additional eye complaints, Denies blind spots and Denies blurry vision ENT: Reports Normal hearing present, Denies lip swelling, Denies epistaxis, Reports neck pain and Denies throat swelling Cardiovascular: Cardiovascular: Reports chest pain (Per HPI), Denies pedal edema, Reports dyspnea on exertion, Reports orthopnea and Reports paroxysmal nocturnal dyspnea Respiratory: Respiratory: Reports dyspnea on exertion Gastrointestinal: Gastrointestinal: Reports no additional gastrointestinal complaints, Denies abdominal pain, Denies bloating, Denies nausea and Denies vomiting Genitourinary: Genitourinary: Denies hematuria Musculoskeletal: Musculoskeletal: Reports neck pain Integumentary/Breasts: Skin/Breast: Denies erythema Neurologic: Reports Normal hearing present Psychiatric: Psychiatric: Reports anxiety (Worrying that his heart will stop.) Endocrine: Endocrine: Reports fatigue Hematologic/Lymphatic: Hematologic/Lymphatic: Denies easy bleeding and Denies easy bruising Allergic/Immunologic: Allergic/Immunologic: Denies lip swelling and Denies throat swelling Exam Const: General: comfortable, no acute distress, in distress and anxious Other: Up in chair. at bedside. Mildly distressed. Slightly unco
[2019-12-14] MEDS: FUROSEMIDE 20 MG TABLET PO (12:13)
--- NOTE | 2019-12-14 15:16 | PM.DS ---
DS: Admitting Diagnosis Admitting Diagnosis Admitting Diagnosis: Chest pain. DS: Discharge Diagnosis Discharge Diagnosis (1) Nonischemic cardiomyopathy: Code(s): I42.8 - Other cardiomyopathies Status: Acute Assessment and Plan: Ef around 10%, cardiology discussing with him about the possibility of a life vest. On Entresto , carvedilol and Aldactone. CXR showed improved pulmonary edema, received another dose of Lasix. (2) Chest pain: Code(s): R07.9 - Chest pain, unspecified Status: Acute Assessment and Plan: Likely musculoskeletal, continue supportive treatment. No PE on ct chest. (3) Sarcoidosis: Code(s): D86.9 - Sarcoidosis, unspecified Status: Acute Assessment and Plan: On prednisone. (4) Leukocytosis: Code(s): D72.829 - Elevated white blood cell count, unspecified Status: Acute Assessment and Plan: Likely related to prednisone. DS: Summary Hospital Course Reason for hospitalization: Chief complaint: Chest pain. Narrative: James Loera is a pleasant 54-year-old male smoker with COPD, GERD, hypertension, and sarcoidosis on long-term prednisone who presented to the emergency department earlier this morning from work for evaluation of chest pain. He reports intermittent chest discomfort for the last 2 to 3 weeks with both midsternal chest pressure and occasional left precordial pain that is sharp and shooting in nature. He sees no real pattern as to when these pains occur, but does note that deep inspiration and palpation aggravates the pain. It seems to be worse when supine and improved somewhat when sitting forward. Last evening the pain became constant and was present when he awoke this morning. Not long after getting to work the chest pain worsened and he was brought into the emergency room for evaluation. Nitroglycerin given in the ambulance provided him with perhaps a bit of improvement in his symptoms. EKG on arrival showed a sinus tachycardia with LVH and secondary repolarization abnormalities with a troponin of 0.1. He is now status post cardiac catheterization per Dr. Warner, which showed no angiographic evidence of coronary artery disease but did demonstrate finding of a severe dilated nonischemic cardiomyopathy. He has since been started on several medications including Entresto, spironolactone, and carvedilol and he was also given a dose of furosemide for pulmonary vascular congestion noted on chest x-ray. At the time of my evaluation he still has reducible left precordial chest pain, somewhat improved after he was given cyclobenzaprine and Lidoderm patch. He appears quite anxious and he reveals to me that his was recently diagnosed with pancreatic cancer and this has really caused him a lot of anxiety, to the point where he was tearful. He has not been sleeping well because of that and seems to be having anxiety attacks. He has no known cardiac involvement with regards to his sarcoidosis and has not had exertional chest pain, shortness of breath, orthopnea, PND, edema, nausea, vomiting, or sweats. He does not drink alcohol in significant quantities, concerns for hepatitis and HIV, and illicit substance use. Hospital Course: patient is a 54-year-old male with nonischemic cardiomyopathy with profound systolic dysfunction with ejection fraction 10% patient is seen by [facility] specialists recommending maximal medical management with continue carvedilol, Entresto and spironolactone. and did Lasix 20 mg, patient to wear LifeVest, patient will follow-up as outpatient is scheduled, patient clinically stable will discharge the patient home today Status at Discharge Functional status at discharge: independent ambulation Overall status at discharge: patient is back to baseline Time Spent with Patient Time attestation: Total time spent providing and/or coordinating discharge services: Patient was seen and examined at the time of the discharg
[2019-12-14] MEDS: ACETAMINOPHEN 500 MG TABLET 1000 MG PO (16:28)
== END 2019-12-14 17:24 | disposition home or self-care (01) | DRG 287 ==
LOC: ANHED 07:05 → ANHIMU 09:32
PROVIDERS: Emergency Medicine; Nurse Practitioner Adult Health; Specialist; Admitting Provider Family Medicine; Emergency Provider Emergency Medicine; PCP Family Medicine; Visit Provider Family Medicine
PROC: 4A023N7 Measurement of Cardiac Sampling and Pressure, Left Heart, Percutaneous Approach (ICD-10-PCS; CPT 93452; principal; 2019-12-11 09:45)
DX: I42.0 Dilated cardiomyopathy (principal); I50.22 Chronic systolic (congestive) heart failure; R07.89 Other chest pain; I11.0 Hypertensive heart disease with heart failure; D86.9 Sarcoidosis, unspecified; K21.9 Gastro-esophageal reflux disease without esophagitis; H40.9 Unspecified glaucoma; M19.90 Unspecified osteoarthritis, unspecified site; F41.9 Anxiety disorder, unspecified; D72.829 Elevated white blood cell count, unspecified; T38.0X5A Adverse effect of glucocorticoids and synthetic analogues, initial encounter; Z96.652 Presence of left artificial knee joint; F17.210 Nicotine dependence, cigarettes, uncomplicated; Z79.52 Long term (current) use of systemic steroids
CPT/HCPCS: 36415; 71045; 71275; 80048; 80053; 83735; 83880; 84484; 85025; 85610; 85730; 93005; 93458; 94762; 96361; 96374; 96375; 99291; A9270; C1887; C1894; C8929; G0378; G0379; J1644; J1885; J2250; J2270; J3010; J7030; J7040; J7512; Q9957; Q9967

== ENCOUNTER 2020-01-07 13:36 | Outpatient (CLI) | payer MEDICARE, MEDICAID, SELFPAY ==
[2020-01-07 15:08] LABS: Anion Gap 6 mmol/L (8-16); Blood Urea Nitrogen 32 mg/dL (9-20); Calcium 9.5 mg/dL (8.4-10.2); Carbon Dioxide 32 mmol/L (22-30); Chloride 101 mmol/L (98-107); Estimated Glomerular Filt Rate > 60; Glucose 100 mg/dL (75-110); Magnesium 1.7 mg/dL (1.6-2.3); Potassium 4.1 mmol/L (3.4-5.0); Sodium 139 mmol/L (137-145)
== END 2020-01-07 13:37 | disposition home or self-care (01) ==
LOC: ANHLAB 13:38
PROVIDERS: PCP Family Medicine; Visit Provider Nurse Practitioner Adult Health
DX: I42.8 Other cardiomyopathies (principal)
CPT/HCPCS: 36415; 80048; 83735